=== PATIENT | female | born 1995 | race Caucasian/White ===

== ENCOUNTER 2023-04-15 23:45 | Outpatient (CLI) | payer MEDICAID, SELFPAY ==
[2023-04-16 00:12] VITALS: BP 129/84; TEMP 37.5
[2023-04-16 00:13] VITALS: PULSE 121; O2SAT 98
[2023-04-16 00:14] VITALS: BMI 33.4
[2023-04-16 00:30] VITALS: BP 116/57; PULSE 107
--- NOTE | 2023-04-16 01:18 | OB.TRI.HP_ITS ---
HPI - General General Date of Admission: 04/16/23 Date of Service: 04/16/23 Chief Complaint: bleeding HPI Narrative EMELY HERNANDEZ, is a 28 F who presents who presents at 30+ gestational weeks complaining of vaginal spotting when she wiped. She denies abdominal trauma or recent intercourse. No unusual activities. She denies any bleeding earlier in the . PFSH PFSH Home Medications [id number] 1 mg tablet 1 tab PO DAILY 04/16/23 [History Last Taken 04/15/23 13:00] Allergy/AdvReac Type Severity Reaction Status Date / Time No Known Allergies Allergy Verified 04/16/23 00:20 Physical Exam Narrative Awake, alert, no acute distress. Skin warm dry and intact Abdomen soft, nontender nondistended gravid Cervix is closed thick and high, no blood on glove with vaginal exam. Assessment & Plan (1) 30 weeks gestation of : PLAN: 28-year-old female at 30+ weeks gestation with vaginal spotting. No active bleeding. No evidence of labor. heart tones are category 1. Recommend pelvic rest for 48 hours call if any further bleeding and follow- up in the office as scheduled or as needed
== END 2023-04-16 01:22 | disposition home or self-care (01) ==
LOC: WPOUT 04-16 00:01 → WP 04-16 00:01
PROVIDERS: Referring Provider Obstetrics & Gynecology; Visit Provider Obstetrics & Gynecology
DX: O26.853 Spotting complicating pregnancy, third trimester (principal); Z3A.30 30 weeks gestation of pregnancy
CPT/HCPCS: 59025; 59050; 99221; G0378

== ENCOUNTER 2023-06-12 09:24 | Inpatient (IN) | payer MEDICAID, SELFPAY ==
--- NOTE | 2023-06-04 17:10 | HP.PCM_ITS ---
History and Physical Date of Admission: 06/12/23 HPI: The patient is a 28 year old female presenting for pre-operative visit. She is scheduled for , for breech on 06/12/23. Procedure discussed along with risks, benefits and complications. Other alternatives discussed for management. Consent form signed? Yes. ? ? PAST MEDICAL HISTORY PAST MEDICAL HISTORY Diagnosis Date ? anxiety/depression ? ? [id number] ? Attention deficit disorder without mention of hyperactivity 10/2006 ? took strattera during the school year in 4th/5th grade ? Breast lump in female 07/10/2011 ? left ? Breast pain 07/10/2011 ? left ? Hypoglycemia, unspecified ? ? gets very anderson/irritable when sugar is low ? Miscarriage 03/12/2019 ? x2 ? ? PAST SURGICAL HISTORY PAST SURGICAL HISTORY Procedure Laterality Date ? BREAST AUGMENTATION WITH IMPLANT ? 2019 ? TOOTH EXTRACTION ? ? ? wisdom ? ? ? CURRENT MEDICATIONS Current Outpatient Medications Medication Sig Dispense Refill ? prental multivitamin 27 mg iron- 800 mcg tablet Take 1 tablet by mouth once daily. ? ? ? No current facility-administered medications for this visit. ? ? ALLERGIES: Patient has no known allergies. ? PERSONAL HISTORY: SOCIAL HISTORY Social History ? Tobacco Use ? Smoking status: Never ? Smokeless tobacco: Never Vaping Use ? Vaping Use: Never used Substance Use Topics ? Alcohol use: Not Currently ? ? Comment: occasionally ? Drug use: No ? FAMILY HISTORY: FAMILY HISTORY FAMILY HISTORY Problem Relation Age of Onset ? other (pre-diabetes) Mother ? ? No Known Problems Father ? ? Tourette syndrome Sister ? ? No Known Problems Sister ? ? Alcohol/Drug Maternal Grandmother ? ? Cancer Maternal Grandfather ? ? prostate cancer ? Lipids Maternal Grandfather ? ? Heart Maternal Grandfather ? ? Pacemaker ? Arthritis Paternal Grandmother ? ? Hypertension Paternal Grandfather ? ? Alcohol/Drug Paternal Grandfather ? ? Ischemic Heart Disease Paternal Grandfather ? ? Hypertension Maternal Aunt ? ? Lipids Maternal Aunt ? ? No Ocular Disease Other ? ? ? REVIEW OF SYMPTOMS: GENERAL: denies fevers or chills ENDOCRINOLOGY: has not been on steroids Cardiology : denies palpitations or chest pain Respiratory: denies SOB or cough Hematology: denies history of prolonged bleeding or easy bruising or VTE Allergy: Denies history of personal or family history of allergy to anesthesia ? PHYSICAL EXAMINATION: ? VITALS: Blood pressure 134/84, weight 205 lb (93 kg), last menstrual period 09/21/2022. ? GENERAL: The patient is well nourished, well hydrated in no acute distress. , The patient is oriented to time, place, and person. NECK: Supple. No lynphadenopathy, normal thyroid, no thyromegaly. LUNGS: Clear to auscultation bilaterally. no wheezes, rhonchi or rales HEART: Regular rate and rhythm, Normal heart sounds, and No murmurs or gallops abd- soft nontender, gravid ? IMPRESSION: Estimated Date of Delivery: 06/20/23 gest HTN, martir breech ? PLAN: The risks/benefits/alternatives and personal involved for the planned c- section were reviewed with the patient. Her questions were answered to her satisfaction and she desires to proceed. Consent was signed. I reviewed with her postop instructions and expectations. ? ? I have reviewed and updated past medical and surgical history, medications and allergies
[2023-06-12] VITALS (16 sets, daily range): BP systolic 94–140; BP diastolic 50–86; PULSE 66–96; RESP 14–20; TEMP 36.3–37; O2SAT 95–100; BMI 35.2
[2023-06-12] MEDS: Lactated Ringers 1,000 ML 999 ML IV (09:55)
[2023-06-12 10:09] LABS: Absolute Lymphocyte Count 1.42 X10^3/uL (0.83-4.51); Absolute Neutrophil Count 7.5 X10^3/uL (2.0-7.7); Basophil# 0.05 X10^3/uL; Basophil% 0.5 % (0-1); Eosinophil# 0.03 X10^3/uL; Eosinophils% 0.3 % (0-5); Hemoglobin 12.4 g/dL (12.0-15.0); Lymphocyte # 1.42 X10^3/ul (0.83-4.51); Lymphocyte % 14.9 % (19-41); Mean Corp Hgb Conc 33.5 g/dL (32-36); Mean Corpuscular Hgb 27.9 pg (27.0-32.0); Mean Corpuscular Volume 83.1 fL (81-99); Mean Platelet Vol. 8.9 fl (6.2-12.0); Monocyte# 0.45 X10^3/uL; Monocyte% 4.7 % (0-10); NRBC Flagged by Analyzer 0 % (0-5); Neutrophil # 7.49 X10^3/uL (2.7-7.7); Neutrophil % 78.9 % (47-70); Platelet Count 225 K/mm3 (150-450); RBC Distribution Width CV 12.9 % (11.6-14.6); RBC Distribution Width SD 38.6 fl (35.1-43.9); Red Blood Count 4.45 M/mm3 (4.2-5.4); White Blood Count 9.5 K/mm3 (4.4-11.0)
[2023-06-12] MEDS: Acetaminophen 500 MG Tablet 1000 MG PO ×3 (10:09→23:50)
[2023-06-12 10:42] LABS: Syphilis Antibodies Non-reactive
[2023-06-12] MEDS: Lactated Ringers 1,000 ML 500 ML IV (11:19)
[2023-06-12] MEDS: Sodium Citrate/Citric Acid 30 ML UDC PO (11:36)
[2023-06-12] MEDS: Cefazolin 2 GM in 0.9% Normal Saline (100mL Bag) 100 ML IV (12:40)
--- NOTE | 2023-06-12 12:41 | OP.PCM_ITS ---
Assessment & Plan (1) 39 weeks gestation of : (2) Elevated blood pressure affecting in third trimester, antepartum: (3) Complete breech presentation: (4) Martir breech: Maternal Data Information Final BASSAM: 06/20/23 Gestational age: 38 6/7 Details Operative Information Date of Procedure: 06/12/23 Pre-Operative Diagnosis: 38 weeks, elevated BP, maternal obesity BMI 35, martir breech Post-Operative Diagnosis: same Classification: Scheduled Procedure Type: low transverse project landscape architect #1: Rolando Lopez project landscape architect #2: memo bowie PAstudeklaudia Type of Anesthesia: Spinal Special Medications: duramorph Antibiotic Given: Ancef 2 grams IV x1 Drain: Flores to straight drain Findings Presentation: Positive for Martir Breech Amniotic Membrane Rupture Type: Artificial
--- NOTE | 2023-06-12 13:38 | OP.PCM_ITS ---
Assessment & Plan (1) Martir breech: (2) Elevated blood pressure affecting in third trimester, antepartum: (3) 39 weeks gestation of : Maternal Data Information Final BASSAM: 06/20/23 Gestational age: 38 6/7 Details Operative Information Date of Procedure: 06/12/23 Pre-Operative Diagnosis: Elevated blood pressure in , 38 weeks gestation, martir breech. Post-Operative Diagnosis: Same Classification: Scheduled Procedure Type: low transverse inspector watch assembly #1: Rolando Lopez inspector watch assembly #2: Maricarmen Baltazar student Type of Anesthesia: Spinal Anesthesiologist: Ty Pollard Special Medications: duramorph Antibiotic Given: Ancef 2 grams IV x1 Drain: Flores to straight drain Estimated Blood Loss: 600 Fluids Replaced: 1100 Procedure Start Time: 12:55 Procedure Stop Time: 12:58 Time of Delivery: 13:26 Findings Description of Procedure: The patient was taken to the operating room. She was prepped and draped in the dorsal supine position with a leftward tilt. A Pfannenstiel skin incision was made approximately 2 cm above the symphysis pubis and carried through to underlying layer fascia with the scalpel. The fascia was incised incised in the midline and extended laterally with the Rosado scissors. The fascia was dissected off the rectus muscles with blunt and sharp dissection. The rectus muscles were in the midline and the peritoneum was entered bluntly. The peritoneal incision was stretched and the bladder blade was placed. The uterine incision was made in a low transverse fashion with the scalpel and extended superiorly and inferiorly with blunt dissection. The amniotic membranes were ruptured bluntly and clear amniotic fluid returned. The infant's buttocks were brought out through the incision and the was brought to back up. The legs were swept out individually. The arms were then swept out individually. The head was then delivered with gentle fundal pressure in a flexed position without difficulty. The mouth and nares were bulb suctioned. The cord was clamped and cut as the was stimulated. Cord clamping was delayed 30 seconds. The was handed off to the waiting nursing staff. The placenta was delivered with fundal massage and gentle traction in the standard fashion. The uterus was exteriorized and cleared of all clots and debris. The cervix was dilated with a ring forcep. The uterine incision was closed with #1 Vicryl in a running locked fashion. The incision was examined and was found to be hemostatic. The uterus was placed back into the peritoneal cavity and hemostasis was again confirmed. The rectus muscles were examined and any bleeding was Bovie cauterized. The parietal peritoneum and rectus muscles were closed en bloc with an 0 Vicryl running suture. The rectus fascia was examined and any bleeding was Bovie cauterized and the rectus fascia was closed with 1 Vicryl suture in a running standard fashion. The subcutaneous tissue was examining and any bleeding was Bovie cauterized. The subcutaneous tissue was reapproximated with 3-0 Vicryl suture. The skin was closed in a subcuticular fashion with Monocryl suture in a subcuticular fashion. I performed the entire procedure with assistance. All sponge, lap, and needle counts were correct. The patient was taken to her room for recovery in a stable condition. Presentation: Positive for Martir Breech Amniotic Membrane Rupture Type: Artificial Amniotic Fluid Description: Clear Placental Delivery Description: Expressed Placenta Disposition: [facility] Specimen(s) Sent to Pathology: none Cord Vessel Description: 3 Vessels Cord Entanglement: None A Gender: Male (1 minute): 8 (5 minute): 9 Delayed Cord Clamping: Yes Admit VTE Documentation VTE Present on Admission: No VTE Mechan Device Prophylaxis: SCD's VTE Pharm Prophylaxis Ordered: Yes
[2023-06-12] MEDS: Oxytocin 15 Units/NS 250ml 15 UNITS/250 ML IV.SOLN 83 UNITS IV (13:40)
[2023-06-12] MEDS: Ketorolac 30 MG/ML Syringe IV ×2 (15:10→21:06)
[2023-06-12] MEDS: Lactated Ringers 1,000 ML 100 ML IV (17:16)
--- NOTE | 2023-06-12 21:31 | NURSING ---
Previous RN gave in report, pt legs were still slightly numb. This RN encouraged pt to stand at bedside at this time, Pt wanted to wait for pain medication to start relieving pain.
[2023-06-13] MEDS: Enoxaparin 40 MG/0.4 ML Syringe SC ×2 (00:53→21:27)
[2023-06-13] MEDS: Ketorolac 30 MG/ML Syringe IV ×2 (03:04→08:51)
[2023-06-13] MEDS: 0.9% Saline Lock 10 ML Syringe IV ×3 (03:05→08:52)
[2023-06-13 03:11] VITALS: BP 119/73; PULSE 85; RESP 16; O2SAT 96
[2023-06-13] MEDS: Nalbuphine 10 MG/ML Ampul 5 MG IV (03:23)
[2023-06-13] MEDS: Acetaminophen 500 MG Tablet 1000 MG PO ×3 (05:39→18:24)
[2023-06-13 05:55] LABS: Hematocrit 32.3 % (37-47); Hemoglobin 10.7 g/dL (12.0-15.0); Mean Corp Hgb Conc 33.1 g/dL (32-36); Mean Corpuscular Hgb 28.4 pg (27.0-32.0); Mean Corpuscular Volume 85.7 fL (81-99); Mean Platelet Vol. 8.9 fl (6.2-12.0); Platelet Count 189 K/mm3 (150-450); RBC Distribution Width CV 13.1 % (11.6-14.6); Red Blood Count 3.77 M/mm3 (4.2-5.4); White Blood Count 10.8 K/mm3 (4.4-11.0)
[2023-06-13] MEDS: Senna/Docusate Sodium 1 Tablet PO (08:51)
[2023-06-13] MEDS: SimETHICONE 80 MG Chewable Tablet PO (08:51)
[2023-06-13 09:22] VITALS: BP 122/74; PULSE 77; RESP 16; TEMP 36.3; O2SAT 96
--- NOTE | 2023-06-13 10:39 | CASEMGMT ---
Social Work Assessment Labor and Delivery Unit Date/Time of Referral: 06/12/23, 9:30am Referred by: Dr. Robyn Jospeh Date/Time of Intervention: 06/13/23, 10:25am Reason for referral: history of depression, anxiety, suicidal ideations History obtained from: KATHIE, ORTIZ Household composition: KATHIE, ORTIZ(Dereck Ferris) and now their baby. They have not named the baby yet. MOB and FOB have been together for one year. Guardian status: MOB is guardian of the baby Medical History: Mom--history of anxiety and depression, due to breech presentation. Baby: Born 06/12/23, 12:58 via . Apgars were 8 and 9 and one and five minutes, weight 3425 grams. Education Status: MOB--has associates degree, went to nursing school. FORicardo--has high school diploma Financial Status: No concerns. MOB works in a vet office. FORicardo works as a supervisor pressing department of [employer]. Both plan to return to work, MOB will return after 12 weeks, MOB's mother plans to watch the baby. Infant supplies: They have all needed supplies including diapers, wipes, car seat, bassinet, crib, clothing, access to bottles and formula if needed. KATHIE is trying to breast feed. KATHIE is actively working on this at present. Childcare/Caregivers: KATHIE's mother is going to help them. Transportation: They have 2 vehicles Programs/Agencies involved: [facility], [facility]/Legal issues: None Behavioral Health Issues: Substance abuse: MOB and FOB, none. No tox screens completed on MOB or baby. Mental Health: FOB--none. He states he was in counseling as a child when his parent got but states that was more for his parents than for him. MOB--history of anxiety and depression. KATHIE states is managing well, not struggling with this at present. She is not on any medication at this time, not in counseling at this time. MOB has not been on medication in years, she states she does not feel like she needs medication at this time. SW did ask FOB to step out briefly, asked MOB about safety, MOB has no safety concerns. KIM did ask MOB also about the mention on suicidal ideation. MOB states that she was not suicidal, is not now. She states that when she was in nursing school she was very depressed. 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 She decided after going to nursing school that it was not for her. She reports no issues of anxiety or depression at this time. Family/Social Stressors: None at this time. Support systems: MOB's mother, father, sister. FOB's aunt and uncle. Depression/Anxiety/Shaken Baby/Mental Health Resources/[facility]/Help Me Grow/Safe Sleeping/[facility] Visiting program: SW gave MOB and FOB information on all of these topics and reviewed with MOB and FOB. SW pointed out in particular information and signs for PPD and anxiety. SW explained if she is having any increased symptoms, to speak w/her physician about it. SW explained that sometimes patients will go on a mood enhancer for a short time. SW also educated MOB that counseling can be helpful. MOB states understanding. Assessment: When SW entered room, MOB had been working on . Baby was crying and FOB was trying to comfort the baby. SW completed assessment quickly to allow MOB to try to breastfeed again. Parents seem attentive to the baby. Plan: Baby will go home w/MOB and FOB at discharge, no further social service needs are anticipated at this time. JUNE Muniz
--- NOTE | 2023-06-13 11:30 | PCM.PN.OB ---
Subjective Subjective Denies complaints Objective Data Objective Data Vital Signs: Vital Signs Temp Pulse Resp BP Pulse Ox O2 Del Method 97.4 F L 77 16 122/74 H 96 Room Air 06/13/23 09:22 06/13/23 09:22 06/13/23 09:22 06/13/23 09:22 06/13/23 09:22 06/13/23 09:22 Oxygen Delivery Method Room Air Weight: 204 lb 12.951 oz Body Mass Index (BMI) 35.2 Intake & Output: Intake and Output for Last 24 Hours 06/11/23 06/12/23 06/13/23 23:59 23:59 23:59 Intake Total 3166.67 / 3166.67 Output Total 1900 / 1900 700 / 700 Balance 1266.67 / 1266.67 -700 / -700 Lab / Micro Data 06/13/23 05:50 Labs: Laboratory Results - last 24 hr 06/12/23 09:55: Blood Type A POSITIVE, Antibody Screen NEGATIVE 06/13/23 05:50: WBC 10.8, RBC 3.77 L, Hgb 10.7 L, Hct 32.3 L, MCV 85.7, MCH 28.4, MCHC 33.1, RDW Std Deviation 40.0, RDW Coeff of Vik 13.1, Plt Count 189, MPV 8.9 Physical Exam Const alert, oriented x3 and no apparent distress HEENT normocephalic GI soft to palpation, non-tender and non-distended GI Narrative: fundus firm, mid & below umbilicus Incision - bandage c/d/i per RN Extremity normal to inspection and no calf tenderness Assessment & Plan (1) Delivery by section: COMMENT: POD#1 PLAN: Plan Heme - HDS, cbc reviewed ID - AF, no signs infection GI/ - no issues Routine care
[2023-06-13 12:17] VITALS: BP 128/79; PULSE 86; RESP 16; TEMP 36.5; O2SAT 98
[2023-06-13] MEDS: Ibuprofen 600 MG Tablet PO ×2 (14:41→21:28)
[2023-06-13 18:14] VITALS: BP 130/76; PULSE 86; RESP 16; TEMP 37.1; O2SAT 97
[2023-06-13 20:00] VITALS: BP 107/59; PULSE 98; RESP 16; TEMP 36.2; O2SAT 97
[2023-06-14] MEDS: Acetaminophen 500 MG Tablet 1000 MG PO ×3 (00:09→12:36)
[2023-06-14 02:00] VITALS: BP 126/86; PULSE 79; RESP 16; TEMP 36.2; O2SAT 97
[2023-06-14] MEDS: Ibuprofen 600 MG Tablet PO ×2 (03:17→08:56)
[2023-06-14 08:46] VITALS: BP 116/83; PULSE 75; RESP 18; TEMP 36.6
[2023-06-14] MEDS: Senna/Docusate Sodium 1 Tablet PO (08:56)
--- NOTE | 2023-06-14 10:16 | PCM.PN.OB ---
Subjective Subjective Denies complaints Objective Data Objective Data Vital Signs: Vital Signs Temp Pulse Resp BP Pulse Ox O2 Del Method 97.8 F 75 18 116/83 H 97 Room Air 06/14/23 08:46 06/14/23 08:46 06/14/23 08:46 06/14/23 08:46 06/14/23 02:00 06/14/23 02:00 Oxygen Delivery Method Room Air Weight: 204 lb 12.951 oz Body Mass Index (BMI) 35.2 Intake & Output: Intake and Output for Last 24 Hours 06/12/23 06/13/23 06/14/23 23:59 23:59 23:59 Intake Total 3166.67 / 3166.67 Output Total 1900 / 1900 700 / 700 Balance 1266.67 / 1266.67 -700 / -700 Lab / Micro Data 06/13/23 05:50 Physical Exam Const alert, oriented x3 and no apparent distress HEENT normocephalic GI soft to palpation, non-tender and non-distended GI Narrative: fundus firm, mid & below umbilicus Incision - bandage c/d/i other than small & stable dried blood Extremity normal to inspection and no calf tenderness Assessment & Plan (1) Delivery by section: COMMENT: POD#2 (2) Elevated blood pressure affecting in third trimester, antepartum: PLAN: Plan BP's normal Plan for d/c to home
--- NOTE | 2023-06-14 10:25 | PCM.DC.SUM ---
Providers Date of Admission: 06/12/23 Primary Care Physician: SETH DARBY MD Reason For Visit: PRIMARY Diagnosis Discharge Diagnosis (1) Delivery by section: Status: Acute (2) Elevated blood pressure affecting in third trimester, antepartum: Status: Acute Code(s): O16.3 - Unspecified maternal hypertension, third trimester Plan BP's normal Plan for d/c to home Medications at Discharge Home Medications [id number] 1 mg tablet 1 tab PO DAILY 04/16/23 acetaminophen 500 mg tablet 1,000 mg (2 x 500 mg) PO Q6H #0 tabs 06/14/23 ibuprofen 600 mg tablet 600 mg PO Q6H #0 tabs 06/14/23 Hospital Course Operations section Summary of Care Provided Minutes Spent on Discharge: 15 Weight / BMI Weight Weight: 204 lb 12.951 oz Body Mass Index (BMI) 35.2 ABG / Lab / Microbiology Data 06/13/23 05:50 D/C Instructions Discharge Diet: No restrictions Discharge Activity: May Shower May resume sexual activity in: 6 weeks Weight Bearing Status: Weight bearing as tolerated Call your doctor if your incision/area has: Continuous Slow Oozing, Sudden Increased Bleeding, Increased Pain/ Swelling, Increased Redness, Foul Smelling Discharge and Swelling at the incision site Call your doctor if you observe: Fever of 101 or Higher, Coldness, Increased Pain, Change in Color, Inability to urinate, Inability to have a bowel movement, Using more than 1 pad per hour, Shortness of breath, Dizziness, Fainting spells, Chest pain, Increased palpitations (irregular heartbeat), Calf discomfort and Uncontrolled pain Suture Line Care: Avoid Pulling/Pushing and Avoid Pinching/Bending Remove Dressing in: 1 week Cleanse incision/area with: Soap & Water Please Follow Up With: Robyn Joseph MD When: Follow up in 2 and 6 weeks for visits. Meaningful Use Info Meaningful Use Diagnoses (Choose all that apply): None applicable Discharge Plan Admission Admit Date/Time: 06/12/23 09:24 Primary Reason for Your Visit: section Attending Provider: Robyn Joseph Primary Care Provider: SETH DARBY Discharge Orders/Prescriptions Prescriptions: New acetaminophen 500 mg Tablet 1,000 mg PO Q6H Qty: 0 0RF ibuprofen 600 mg Tablet 600 mg PO Q6H Qty: 0 0RF No Action [id number] 1 mg tablet 1 tab PO DAILY Referrals / Follow Up: SETH DARBY MD [Primary Care Provider] - Disposition Disposition (needs filled in before D/C Order can be placed): Home, Self Care
== END 2023-06-14 12:45 | disposition home or self-care (01) | DRG 540 ==
PROVIDERS: Admitting Provider Obstetrics & Gynecology; Visit Provider Obstetrics & Gynecology
PROC: 10D00Z1 Extraction of Products of Conception, Low, Open Approach (ICD-10-PCS; CPT 59514; principal; 2023-06-12 11:45)
DX: O32.1XX0 Maternal care for breech presentation, not applicable or unspecified (principal); Z37.0 Single live birth; Z3A.38 38 weeks gestation of pregnancy
CPT/HCPCS: 59025; 59050; 85025; 85027; 86780; 86850; 86900; 86901; 99221; J7120; A4216; G0378; J2405